=== PATIENT | female | born 1955 | race Caucasian/White ===

== ENCOUNTER 2021-03-20 08:43 | Outpatient (CLI) | payer OTHER, SELFPAY ==
[2021-03-20 09:06] VITALS: BP 120/75; PULSE 75; RESP 18; TEMP 36.8; O2SAT 98
[2021-03-20 10:43] VITALS: BP 119/79; PULSE 63; RESP 18; TEMP 36.6; O2SAT 99
[2021-03-20 11:24] VITALS: BP 113/75; PULSE 66; RESP 17; TEMP 36.8; O2SAT 98
== END 2021-03-20 08:44 | disposition home or self-care (01) ==
LOC: OPS 08:46
PROVIDERS: PCP Family Medicine; Visit Provider Nurse Practitioner Family
DX: U07.1 COVID-19 (principal)
CPT/HCPCS: 96365